=== PATIENT | male | born 1985 | race African-American/Black ===

== ENCOUNTER 2016-05-07 22:38 | Emergency (ER) | payer OTHER ==
[~2016-05-07] VITALS: Ht 167.6 cm; Wt 59.2 kg
[~2016-05-07 22:38] MED LIST: AMOXICILLIN500 MG PO; DILANTIN; DILANTIN100 MG PO; FLEXERIL10 MG PO; FLEXERIL5 MG PO; INDOCIN25 MG PO; NAPROXEN500 MG PO; PEN-VEE K,VEET500 MG PO; PERCOCET 7.51 TABLET PO; PHENYTOIN SODI100 M1 PO; TRAMADOL HCL50 MG; TYLENOL REGULA325 MG PO; ULTRAM50 MG PO; VICODIN,LORT1 TABLET PO
[2016-05-07 22:42] VITALS: BP 126/82
== END 2016-05-07 23:52 | disposition left against medical advice (07) ==
LOC: EME 22:38
DX: R56.9 Unspecified convulsions (principal); Z76.0 Encounter for issue of repeat prescription; Z53.21 Procedure and treatment not carried out due to patient leaving prior to being seen by health care provider

== ENCOUNTER 2016-05-11 22:49 | Emergency (ER) | payer OTHER ==
[~2016-05-11] VITALS: Ht 167.6 cm; Wt 58.4 kg
[2016-05-11 22:55] VITALS: BP 131/90
== END 2016-05-11 23:35 | disposition left against medical advice (07) ==
LOC: EME 22:49
DX: Z03.89 Encounter for observation for other suspected diseases and conditions ruled out (principal); Z53.21 Procedure and treatment not carried out due to patient leaving prior to being seen by health care provider

== ENCOUNTER 2016-05-14 23:38 | Emergency (ER) | payer OTHER ==
[~2016-05-14] VITALS: Ht 167.6 cm; Wt 58.2 kg
[2016-05-15] MEDS ORDERED: DILANTIN100 MG PO (00:19)
[2016-05-15 00:36] VITALS: BP 125/69
== END 2016-05-15 00:37 | disposition home or self-care (01) ==
LOC: EXP 23:38 → EME 23:38 → EXP 05-15 00:37
DX: G40.909 Epilepsy, unspecified, not intractable, without status epilepticus (principal); Z76.0 Encounter for issue of repeat prescription; F17.200 Nicotine dependence, unspecified, uncomplicated

== ENCOUNTER 2016-05-18 22:55 | Emergency (ER) | payer OTHER ==
[~2016-05-18] VITALS: Ht 167.6 cm; Wt 89.5 kg
[2016-05-18] MEDS ORDERED: DILANTIN100 MG PO (23:08)
[2016-05-18 23:25] VITALS: BP 127/81
== END 2016-05-18 23:25 | disposition home or self-care (01) ==
LOC: EXP 22:55 → EME 22:55 → EXP 23:25
DX: G40.909 Epilepsy, unspecified, not intractable, without status epilepticus (principal); Z76.0 Encounter for issue of repeat prescription; F17.200 Nicotine dependence, unspecified, uncomplicated
CPT/HCPCS: 99281; 99283

== ENCOUNTER 2016-05-25 23:50 | Emergency (ER) | payer OTHER ==
[~2016-05-25] VITALS: Ht 162.6 cm; Wt 65.9 kg
[2016-05-26] MEDS ORDERED: DILANTIN100 MG PO (00:36)
[2016-05-26 00:40] VITALS: BP 130/75
== END 2016-05-26 01:07 | disposition home or self-care (01) ==
LOC: RME 23:50 → EME 23:50 → RME 05-26 01:07
DX: Z76.0 Encounter for issue of repeat prescription (principal); G40.909 Epilepsy, unspecified, not intractable, without status epilepticus; F17.200 Nicotine dependence, unspecified, uncomplicated
CPT/HCPCS: 99281; 99283